=== PATIENT | female | born 1975 | race Caucasian/White ===

== ENCOUNTER 2023-09-13 09:18 | Emergency (ER) | payer OTHER ==
--- NOTE | 2023-09-13 09:53 | ED ---
Abdominal Pain HPI - General Source: patient, RN notes reviewed Mode of arrival: ambulatory Limitations: no limitations <Nito Warner - Last Filed: 09/13/23 09:52> <Jose Luis Solomon - Last Filed: 09/15/23 07:05> - General Chief Complaint: Abdominal Pain Stated Complaint: Abd Pain,Nausea Time Seen by Provider: 09/13/23 09:52 - History of Present Illness Initial Comments: 48-year-old female presents emergency Department with chief complaint of abdominal pain. Patient states she's been having symptoms of last week. Patient was seen at [facility] and states that she was diagnosed with a virus in her intestines and was placed on antibiotics. Patient states has not helped. Patient denies any fever she states she has diffuse abdominal pain she's had a prior cholecystectomy. She denies any significant changes in her bowel habits she has had slight nausea. (Nito Warner) - Related Data Home Medications Medication Instructions Recorded Confirmed Ondansetron Odt [Zofran Odt] 4 mg PO Q8HR PRN 09/13/23 09/13/23 QUEtiapine FUMARATE [SEROquel XR] 600 mg PO HS 09/13/23 09/13/23 hydrOXYzine HCL [Atarax] 25 mg PO TID PRN 09/13/23 09/13/23 Allergies Allergy/AdvReac Type Severity Reaction Status Date / Time No Known Allergies Allergy Verified 09/13/23 16:39 Review of Systems ROS Other: All systems not noted in ROS Statement are negative. <Nito Warner - Last Filed: 09/13/23 09:52> ROS Other: All systems not noted in ROS Statement are negative. <Jose Luis Solomon - Last Filed: 09/15/23 07:05> ROS Statement: Those systems with pertinent positive or pertinent negative responses have been documented in the HPI. Past Medical History Past Medical History: No Reported History History of Any Multi-Drug Resistant Organisms: None Reported Past Surgical History: Section, Cholecystectomy Past Psychological History: No Psychological Hx Reported Smoking Status: Never smoker Past Alcohol Use History: None Reported Past Drug Use History: None Reported <Nito Warner - Last Filed: 09/13/23 09:52> General Exam Limitations: no limitations <Nito Warner - Last Filed: 09/13/23 09:52> Limitations: no limitations General appearance: alert, in no apparent distress Head exam: Present: atraumatic, normocephalic Eye exam: Present: normal appearance. Absent: scleral icterus, conjunctival injection Neck exam: Present: normal inspection Respiratory exam: Present: normal lung sounds bilaterally. Absent: respiratory distress, wheezes, rales, rhonchi, stridor Cardiovascular Exam: Present: regular rate, normal rhythm, normal heart sounds. Absent: systolic murmur, diastolic murmur, rubs, gallop GI/Abdominal exam: Present: soft, tenderness. Absent: distended, guarding, rebound, rigid, mass, pulsatile mass, hernia Extremities exam: Present: normal inspection, normal capillary refill. Absent: pedal edema, calf tenderness Back exam: Present: normal inspection. Absent: CVA tenderness (R), CVA tenderness (L) Neurological exam: Present: alert Skin exam: Present: warm, dry, intact, normal color. Absent: rash <Jose Luis Solomon - Last Filed: 09/15/23 07:05> - General Exam Comments Initial Comments: Visual Physical Exam Vital signs reviewed General: Well-appearing, nontoxic, no acute distress. Head: Normocephalic, atraumatic Eyes: PERRLA, EOMI ENT: Airway patent Chest: Nonlabored breathing Skin: No visual rash, normal skin tone Neuro: Alert and oriented 3 Musculoskeletal: No gross abnormalities (Nito Warner) Course Vital Signs 09/13/23 09/13/23 09/13/23 09:49 15:23 18:06 Temperature 98 F 98 F 98.2 F Pulse Rate 77 87 74 Respiratory 18 18 18 Rate Blood Pressure 122/86 127/88 113/68 O2 Sat by Pulse 95 98 95 Oximetry 09/13/23 21:04 Temperature Pulse Rate 71 Respiratory 16 Rate Blood Pressure 125/78 O2 Sat by Pulse 96 Oximetry Medical Decision Making <Nito Warner - Last Filed: 09/13/23 09:52> - Lab Data Result diagrams: 09/13/23 09:52 09/13/23 09:52 <Jose Luis Solomon - Last Filed: 09/15/23 07:05> - Medical Decision Making I completed the quick note portion of this chart signed Nito Warner PA-C (Nito Warner) Patient is 48-year-old woman here with abdominal pain. Also having frequent vomiting. The workup does reveal a trace of pneumobilia but patient is status post cholecystectomy. I discussed the findings with patient and recommended admission but she wanted to try further symptomatic treatment and then was feel ing better and wanted to go home. Discussed that if she has recurrence of any of her symptoms or if she is not continuing to progress back to normal by the morning she needs to return for admission. Was pt. sent in by a medical professional or institution (, PA, [facility], urgent care, hospital, or half-way...) When possible be specific @ -[No] Did you speak to anyone other than the patient for history (EMS, parent, family, police, friend...)? What history was obtained from this source @ -[No] Did you review nursing and triage notes (agree or disagree)? Why? @ -[I reviewed and agree with nursing and triage notes] Were old charts reviewed (outside hosp., previous admission, EMS record, old EKG, old radiological studies, urgent care reports/EKG's, half-way records)? Report findings @ -[No old charts were reviewed] Differential Diagnosis (chest pain, altered mental status, abdominal pain women, abdominal pain men, vaginal bleeding, weakness, fever, dyspnea, syncope, headache, dizziness, GI bleed, back pain, seizure, CVA, palpatations, mental health, musculoskeletal)? @ -[Differential Abdominal Pain Women: Appendicitis, Cholecystitis, diverticulosis, ischemic bowel, pancreatitis, hepa titis, UTI, gastroenteritis, AAA, incarcerated hernia, bowel obstruction, constipation, inflammatory bowel, hepatitis, peptic ulcer disease, splenic infarction, perforated viscus, vulvitis, ovarian torsion, PID, kidney stone, placenta abruption, this is not meant to be an all-inclusive list EKG interpreted by me (3pts min.). @ -[As above] X-rays interpreted by me (1pt min.). @ -[None done] CT interpreted by me (1pt min.). @ -[I interpreted as above U/S interpreted by me (1pt. min.). @ -[None done] What testing was considered but not performed or refused? (CT, X-rays, U/S, labs)? Why? @ -[None] What meds were considered but not given or refused? Why? @ -[None] Did you discuss the management of the patient with other professionals (professionals i.e. [facility]ij[facility], PA, [facility], lab, RT, psych nurse, social media campaign manager, network cable installer, teacher, special forces warrant officer, vocational case manager)? Give summary @ -[No] Was smoking cessation discussed for >3mins.? @ -[No] Was critical care preformed (if so, how long)? @ -[No] Were there social determinants of health that impacted care today? How? (Homelessness, low income, unemployed, alcoholism, drug addiction, transportation, low edu. Level, literacy, decrease access to med. care, alf, rehab)? @ -[No] Was there de-escalation of care discussed even if they declined (Discuss DNR or withdrawal of care, Hospice)? DNR status @ -[No] What co-morbidities impacted this encounter? (DM, HTN, Smoking, COPD, CAD, Cancer, CVA, ARF, Chemo, Hep., AIDS, mental health diagnosis, sleep apnea, morbid obesity)? @ -[None] Was patient admitted / discharged? Hospital course, mention meds given and route, prescriptions, significant lab abnormalities, going to OR and other pertinent info. @ -See above Undiagnosed new problem with uncertain prognosis? @ -[No] Drug Therapy requiring intensive monitoring for toxicity (Heparin, Nitro, Insulin, Cardizem)? @ -[No] Were any procedures done? @ -[No] Diagnosis/symptom? @ -[Acute abdominal pain Acute, or Chronic, or Acute on Chronic? @ -[Acute Uncomplicated (without systemic symptoms) or Complicated (systemic symptoms)? @ -[default] Side effects of treatment? @ -[No] Exacerbation, Progression, or Severe Exacerbation? @ -[No] Poses a threat to life or bodily function? How? (Chest pain, [place], [place], pneumonia, PE, COPD, DKA, ARF, appy, cholecystitis, CVA, Diverticulitis, Homicidal, Suicidal, threat to staff... and all critical care pts) @ -[Yes, pneumobilia may be associated with infection and may become life-thr eatening, the patient to maintain low index to return, we discussed the appropriate further care and follow-up as well as return parameters (Jose Luis Solomon) - Lab Data Lab Results 09/13/23 09/13/2309/13/23 Range/Units 09:52 09:52 09:52 WBC 9.0 (3.8-10.6) k/uL RBC 4.81 (3.80-5.40) m/uL Hgb 13.7 (11.4-16.0) gm/dL Hct 41.1 (34.0-46.0) % MCV 85.5 (80.0-100.0) fL MCH 28.4 (25.0-35.0) pg MCHC 33.2 (31.0-37.0) g/dL RDW 13.6 (11.5-15.5) % Plt Count 274 (150-450) k/uL MPV 7.9 Neutrophils % 81 % Lymphocytes % 10 % Monocytes % 6 % Eosinophils % 1 % Basophils % 0 % Neutrophils # 7.3 (1.3-7.7) k/uL Lymphocytes # 0.9 L (1.0-4.8) k/uL Monocytes # 0.5 (0-1.0) k/uL Eosinophils # 0.1 (0-0.7) k/uL Basophils # 0.0 (0-0.2) k/uL Sodium 137 (137-145) mmol/L Potassium 4.3 (3.5-5.1) mmol/L Chloride 109 H (98-107) mmol/L Carbon Dioxide 15 L (22-30) mmol/L Anion Gap 13 mmol/L BUN 9 (7-17) mg/dL Creatinine 0.77 (0.52-1.04) mg/dL Est GFR (CKD-EPI)AfAm >90 (>60 ml/min/1.73 sqM) Est GFR (CKD-EPI)NonAf >90 (>60 ml/min/1.73 sqM) Glucose 108 H (74-99) mg/dL Plasma Lactic Acid Jose (0.7-2.0) mmol/L Calcium 9.2 (8.4-10.2) mg/dL Total Bilirubin 0.5 (0.2-1.3) mg/dL AST 26 (14-36) U/L ALT 26 (4-34) U/L Alkaline Phosphatase 67 (38-126) U/L Total Protein 6.1 L (6.3-8.2) g/dL Albumin 3.5 (3.5-5.0) g/dL Amylase 41 (30-110) U/L Lipase 82 (23-300) U/L Urine Color Colorless Urine Appearance Clear (Clear) Urine pH 6.0 (5.0-8.0) Ur Specific [place] 1.016 (1.001-1.035) Urine Protein Negative (Negative) Urine Glucose (UA) Negative (Negative) Urine Ketones Negative (Negative) Urine Blood Negative (Negative) Urine Nitrite Negative (Negative) Urine Bilirubin Negative (Negative) Urine Urobilinogen <2.0 (<2.0) mg/dL Ur Leukocyte Esterase Negative (Negative) Influenza Type A (PCR) (Not Detectd) Influenza Type B (PCR) (Not Detectd) RSV (PCR) (Not Detectd) SARS-CoV-2 (PCR) (Not Detectd) 09/13/23 09/13/23 Range/Units 09:52 15:14 WBC (3.8-10.6) k/uL RBC (3.80-5.40) m/uL Hgb (11.4-16.0) gm/dL Hct (34.0-46.0) % MCV (80.0-100.0) fL MCH (25.0-35.0) pg MCHC (31.0-37.0) g/dL RDW (11.5-15.5) % Plt Count (150-450) k/uL MPV Neutrophils % % Lymphocytes % % Monocytes % % Eosinophils % % Basophils % % Neutrophils # (1.3-7.7) k/uL Lymphocytes # (1.0-4.8) k/uL Monocytes # (0-1.0) k/uL Eosinophils # (0-0.7) k/uL Basophils # (0-0.2) k/uL Sodium (137-145) mmol/L Potassium (3.5-5.1) mmol/L Chloride (98-107) mmol/L Carbon Dioxide (22-30) mmol/L Anion Gap mmol/L BUN (7-17) mg/dL Creatinine (0.52-1.04) mg/dL Est GFR (CKD-EPI)AfAm (>60 ml/min/1.73 sqM) Est GFR (CKD-EPI)NonAf (>60 ml/min/1.73 sqM) Glucose (74-99) mg/dL Plasma Lactic Acid Jose 0.8 (0.7-2.0) mmol/L Calcium (8.4-10.2) mg/dL Total Bilirubin (0.2-1.3) mg/dL AST (14-36) U/L ALT (4-34) U/L Alkaline Phosphatase (38-126) U/L Total Protein (6.3-8.2) g/dL Albumin (3.5-5.0) g/dL Amylase (30-110) U/L Lipase (23-300) U/L Urine Color Urine Appearance (Clear) Urine pH (5.0-8.0) Ur Specific [place] (1.001-1.035) Urine Protein (Negative) Urine Glucose (UA) (Negative) Urine Ketones (Negative) Urine Blood (Negative) Urine Nitrite (Negative) Urine Bilirubin (Negative) Urine Urobilinogen (<2.0) mg/dL Ur Leukocyte Esterase (Negative) Influenza Type A (PCR) Not Detected (Not Detectd) Influenza Type B (PCR) Not Detected (Not Detectd) RSV (PCR) Not Detected (Not Detectd) SARS-CoV-2 (PCR) Not Detected (Not Detectd) Disposition <Nito Warner - Last Filed: 09/13/23 09:52> Is patient prescribed a controlled substance at d/c from ED?: No <Jose Luis Solomon - Last Filed: 09/15/23 07:05> Clinical Impression: Abdominal pain Disposition: HOME SELF-CARE Condition: Good Instructions (If sedation given, give patient instructions): Abdominal Pain (ED) Referrals: Marvin Reynolds Jr, [Primary Care Provider] - 1-2 days
[2023-09-13 10:23] LABS: Basophils % (A) 0 %; Eosinophils # (A) 0.1 k/uL (0-0.7); Eosinophils % (A) 1 %; HCT 41.1 % (34.0-46.0); HGB 13.7 gm/dL (11.4-16.0); Lymphocytes # (A) 0.9 k/uL (1.0-4.8); Lymphocytes % (A) 10 %; MCH 28.4 pg (25.0-35.0); MCHC 33.2 g/dL (31.0-37.0); MCV 85.5 fL (80.0-100.0); Mean Platelet Volume 7.9; Monocytes # (A) 0.5 k/uL (0-1.0); Monocytes % (A) 6 %; Neutrophils # (A) 7.3 k/uL (1.3-7.7); Neutrophils % (A) 81 %; Platelet Count 274 k/uL (150-450); RBC 4.81 m/uL (3.80-5.40); RDW 13.6 % (11.5-15.5)
[2023-09-13 10:42] LABS: ALT 26 U/L (4-34); AST 26 U/L (14-36); African American GFR (CKD) >90 (>60 ml/min/1.73 sqM); Albumin 3.5 g/dL (3.5-5.0); Alkaline Phosphatase 67 U/L (38-126); Amylase 41 U/L (30-110); Anion Gap 13 mmol/L; Blood Urea Nitrogen 9 mg/dL (7-17); Calcium 9.2 mg/dL (8.4-10.2); Carbon Dioxide 15 mmol/L (22-30); Chloride 109 mmol/L (98-107); Glucose 108 mg/dL (74-99); Lipase 82 U/L (23-300); Non-African American GFR(CKD) >90 (>60 ml/min/1.73 sqM); Potassium 4.3 mmol/L (3.5-5.1); Sodium 137 mmol/L (137-145); Total Bilirubin 0.5 mg/dL (0.2-1.3); Total Protein 6.1 g/dL (6.3-8.2)
[2023-09-13 11:18] LABS: Appearance,Urine Clear (Clear); Bilirubin,Urine Negative (Negative); Blood,Urine Negative (Negative); Color,Urine Colorless; Glucose,Urine (UA) Negative (Negative); Ketones,Urine Negative (Negative); Leukocyte Esterase,Urine Negative (Negative); Nitrite,Urine Negative (Negative); Protein,Urine Negative (Negative); Specific Gravity,Urine 1.016 (1.001-1.035); Urobilinogen,Urine <2.0 mg/dL (<2.0)
[2023-09-13] MEDS ORDERED: ONDANSETRON 4 MG/2 ML VIAL IVP STA (15:35)
[2023-09-13] MEDS ORDERED: SODIUM CHLORIDE 0.9% 1,000 ML IV ONE ×2 (15:35→18:07)
[2023-09-13] MEDS ORDERED: MORPHINE SULFATE 4 MG/ML SYRINGE IVP STA (16:56)
--- NOTE | 2023-09-13 17:05 | CT ---
EXAMINATION TYPE: CT abdomen pelvis wo con CT DLP: 900.7 mGycm, Automated exposure control for dose reduction was used. DATE OF EXAM: 09/13/2023 3:49 PM COMPARISON: CLINICAL INDICATION:Female, 48 years old with history of RUQ pain; RUQ pain TECHNIQUE: Axial CT of the abdomen and pelvis. Sagittal and coronal reformats were created on a [employer] workstation. Contrast used: mL of , (none if empty) Oral contrast used: without Oral Contrast (none if empty) FINDINGS: Exam is limited by lack of contrast. LOWER CHEST: No acute abnormality. Tiny emphysematous bleb at the left lung base posteriorly. Normal heart size with prominent pericardial fat. ABDOMEN LIVER: Tiny quantity of pneumobilia is seen at the christopher hepatis and right lobe. Liver is otherwise u nremarkable. GALLBLADDER AND BILE DUCTS: The gallbladder is surgically absent. Biliary tree does not appear pathol ogically dilated. PANCREAS: Unremarkable. SPLEEN: Unremarkable. Rounded 2.5 cm soft tissue density anterior to the spleen, likely accessory spl enic tissue. ADRENAL GLANDS: Unremarkable. KIDNEYS AND URETERS: Kidneys show no contour deforming lesion. Punctate calculus in the interpolar le ft kidney. No appreciable right renal calculi. No hydroureteronephrosis. PELVIS BLADDER: Unremarkable bladder contour. The urinary contents appear more hyperdense than expected with loss of the normally visible wall. REPRODUCTIVE: Not well evaluated by CT. Nevertheless the uterus appears enlarged and somewhat heterog eneous without clearly defined endometrial stripe. In the upper cervical region anteriorly on the lef t there is a rounded low-attenuation focus measuring up to 2 cm which may relate to nabothian cyst. O varies are grossly unremarkable. ABDOMEN & PELVIS STOMACH AND BOWEL: Stomach is nondistended. There is likely gastric diverticulum extending posteriorl y medial to the spleen. Unremarkable duodenum. Multiple fluid-filled mildly distended mid to distal small bowel loops are seen extending through the terminal ileal region. There is fatty infiltration o f the ileocecal valve. Fluid distention of the cecum up to 7.9 cm diameter. There are bubbles of gas seen which are believed to be intraluminal. There seems to be a point of transition from dilated to n ondilated colon in the distal ascending/hepatic flexure region. The colon thereafter appears decompre ssed with some scattered stool throughout. The appendix itself does not appear particularly dilated o r inflamed. PERITONEUM/RETROPERITONEUM: No evidence of pneumoperitoneum or free fluid. VASCULATURE: Mild atherosclerotic calcifications are present throughout the abdominal aorta and its b ranches. No evidence of aortic aneurysm. LYMPH NODES: No gross evidence for lymphadenopathy. SOFT TISSUE/ABDOMINAL WALL: Unremarkable for acute process. Partially seen heterogeneously dense [address] tissues. MUSCULOSKELETAL: No acute osseous abnormalities. Mild degenerative changes of the spine. There is po sterior fusion of L5-S1 with bilateral pedicle screws and posterior fixation rods. Prosthetic disc in terspace material L5-S1 with near complete interbody fusion. Partial laminectomy changes at L5-S1. Th e transpedicular screws appear to take a normal intraosseous course, the right L5 screw appears to te rminate slightly beyond the anterior cortical surface of L5, up to 4.3 mm. The left L5 screw appears to terminate near the cortical margin. The S1 screw on the left appears to terminate at or just befor e the cortical margin, while the right-sided screw appears to extend slightly beyond the cortical mar gin by about 4.3 mm. No fractures are seen. Small sclerotic density in the anterior L3 vertebral body , could represent bone island. No destructive bone lesion is seen. IMPRESSION: 1. Limited unenhanced study. 2. Fluid distention of the cecum could be related to obstructive or partially obstructive process, w ith point of transition suggested in the distal ascending colon near the hepatic flexure. Colonoscopy may be of benefit. 3. Fluid-filled, mildly dilated mid to distal small bowel loops, likely related to #2. 4. Status post cholecystectomy. Nondilated biliary tree. 5. Mild pneumobilia in the right hepatic lobe. Correlate for any recent procedure. 6. Enlarged, heterogeneous uterus and low-attenuation nodule in the left upper cervix, not well eval uated by this exam. This could represent fibroid disease and nabothian cyst. Outpatient correlation w ith pelvic ultrasound may be beneficial. 7. Somewhat hyperdense bladder contents, nonspecific. Consider correlation with urinalysis. 8. Nonacute postop spine findings as described above.
[2023-09-13] MEDS ORDERED: METOCLOPRAMIDE 5 MG/ML 2 ML VIAL IVP STA (18:07)
[2023-09-13 18:13] VITALS: TEMP 98.2
[2023-09-13 21:06] VITALS: BP 125/78; PULSE 71; RESP 16
== END 2023-09-13 21:05 | disposition home or self-care (01) ==
LOC: EC 09:18
DX: R10.84 Generalized abdominal pain (principal); Z20.822 Contact with and (suspected) exposure to COVID-19; Z90.49 Acquired absence of other specified parts of digestive tract
CPT/HCPCS: 36415; 80053; 82150; 83605; 83690; 85025; 81003; 87636; 74176; 99284; 96374; 96375 ×2; 96361 ×3; J2270; J2765; J2405

== ENCOUNTER 2023-09-29 14:17 | Observation (INO) | payer OTHER ==
--- NOTE | 2023-09-29 14:26 | ED ---
Abdominal Pain HPI <Mindy Collado - Last Filed: 09/29/23 14:24> - General Source: RN notes reviewed, old records reviewed Limitations: no limitations - History of Present Illness MD Complaint: abdominal pain -: days(s) Location: periumbilical, epigastric Radiation: epigastric Migration to: epigastric, suprapubic Severity: severe Severity scale (1-10): 10 Quality: sharp Consistency: constant Improves With: nothing Worsens With: nothing Associated Symptoms: nausea, vomiting, diarrhea Treatments Prior to Arrival: other (0) <Terence Phillip - Last Filed: 09/29/23 23:17> - General Stated Complaint: abd pain vomiting Time Seen by Provider: 09/29/23 14:24 - History of Present Illness Initial Comments: Patient is a 48-year-old female presented ER with chief complaint of nausea and vomiting. Patient states she woke up this morning and has been having abdominal pain as well. Patient denies any fevers, chills, night sweats. (Mindy Collado) This 48-year-old female to the emergency department today. Patient presents today for evaluation of dull pain with nausea vomiting. No fevers no travel show sick contacts complaints. (Terence Phillip) - Related Data Home Medications Medication Instructions Recorded Confirmed QUEtiapine FUMARATE [SEROquel XR] 300 mg PO HS 09/29/23 09/29/23 lamoTRIgine [LaMICtal Xr] 25 mg PO DAILY 09/29/23 09/29/23 Allergies Allergy/AdvReac Type Severity Reaction Status Date / Time No Known Allergies Allergy Verified 09/29/23 21:42 Review of Systems ROS Other: All systems not noted in ROS Statement are negative. <Mindy Collado - Last Filed: 09/29/23 14:24> ROS Other: All systems not noted in ROS Statement are negative. <Terence Phillip - Last Filed: 09/29/23 23:17> ROS Statement: Those systems with pertinent positive or pertinent negative responses have been documented in the HPI. Past Medical History Past Medical History: No Reported History History of Any Multi-Drug Resistant Organisms: None Reported Past Surgical History: Section, Cholecystectomy Past Psychological History: No Psychological Hx Reported Smoking Status: Never smoker Past Alcohol Use History: None Reported Past Drug Use History: None Reported <Mindy Collado - Last Filed: 09/29/23 14:24> General Exam <Mindy Collado - Last Filed: 09/29/23 14:24> General appearance: alert, in no apparent distress Head exam: Present: atraumatic, normocephalic, normal inspection Eye exam: Present: normal appearance, PERRL, EOMI. Absent: scleral icterus, conjunctival injection, periorbital swelling ENT exam: Present: normal exam, mucous membranes moist Neck exam: Present: normal inspection. Absent: tenderness, meningismus, lymphadenopathy Respiratory exam: Present: normal lung sounds bilaterally. Absent: respiratory distress, wheezes, rales, rhonchi, stridor Cardiovascular Exam: Present: regular rate, normal rhythm, normal heart sounds. Absent: systolic murmur, diastolic murmur, rubs, gallop, clicks GI/Abdominal exam: Present: soft, normal bowel sounds. Absent: distended, tenderness, guarding, rebound, rigid Extremities exam: Present: normal inspection, full ROM, normal capillary refill. Absent: tenderness, pedal edema, joint swelling, calf tenderness Back exam: Present: normal inspection Neurological exam: Present: alert, oriented X3, CN II-XII intact Psychiatric exam: Present: normal affect, normal mood Skin exam: Present: warm, dry, intact, normal color. Absent: rash <Terence Phillip - Last Filed: 09/29/23 23:17> - General Exam Comments Initial Comments: Visual Physical Exam Vital signs reviewed General: Well-appearing, nontoxic, no acute distress. Head: Normocephalic, atraumatic Eyes: PERRLA, EOMI ENT: Airway patent Chest: Nonlabored breathing Skin: No visual rash, normal skin tone Neuro: Alert and oriented 3 Musculoskeletal: No gross abnormalities (Mindy Collado) Course <Terence Phillip - Last Filed: 09/29/23 23:17> Vital Signs 09/29/23 09/29/23 09/29/23 14:35 18:34 20:00 Temperature 97.0 F L Pulse Rate 93 92 95 Respiratory 18 20 22 Rate Blood Pressure 127/84 144/82 135/84 O2 Sat by Pulse 95 92 L 95 Oximetry 09/29/23 21:00 Temperature Pulse Rate 72 Respiratory 19 Rate Blood Pressure 102/60 O2 Sat by Pulse 98 Oximetry - Reevaluation(s) Reevaluation #1: 09/29/23 17:05 Record is reviewed (Terence Phillip) Reevaluation #2: 09/29/23 23:15 Patient symptoms are unchanged, patient does not feel well it persistent abdo devante pain (Terence Phillip) Reevaluation #3: 09/29/23 23:15 Patient informed results questions answered (Terence Phillip) Reevaluation #4: 09/29/23 16:45 Was pt. sent in by a medical professional or institution ([facility]ILO Smith, [employer], urgent care, hospital, or jail...) When possible be specific @ -no Did you speak to anyone other than the patient for history (EMS, parent, family, police, friend...)? What history was obtained from this source @ -no Did you review nursing and triage notes (agree or disagree)? Why? @ -agree Are old charts reviewed (outside hosp., previous admission, EMS record, old EKG, old radiological studies, urgent care reports/EKG's, jail records)? Report findings @ -yes Differential Diagnosis (chest pain, altered mental status, abdominal pain women, abdominal pain men, vaginal bleeding, weakness, fever, dyspnea, syncope, headache, dizziness, GI bleed, back pain, seizure, CVA, palpatations, mental health, musculoskeletal)? @ -prior EKG interpreted by me (3pts min.). @ -yes X-rays interpreted by me (1pt min.). @ -yes CT interpreted by me (1pt min.). @ -no U/S interpreted by me (1pt. min.). @ -no What testing was considered but not performed or refused? (CT, X-rays, U/S, labs)? Why? @ -none What meds were considered but not given or refused? Why? @ -none Did you discuss the management of the patient with other professionals (professionals i.e. SHILO Smith, [employer], lab, RT, psych nurse, social science research assistant, printing grey cloth tender, teacher, parking officer, outpatient case manager)? Give summary @ -no Was smoking cessation discussed for >3mins.? @ -no Was critical care preformed (if so, how long)? @ -no Were there social determinants of health that impacted care today? How? (Homelessness, low income, unemployed, alcoholism, drug addiction, transportation, low edu. Level, literacy, decrease access to med. care, senior living, rehab)? @ -none Was there de-escalation of care discussed even if they declined (Discuss DNR or withdrawal of care, Hospice)? DNR status @ -no What co-morbidities impacted this encounter? (DM, HTN, Smoking, COPD, CAD, Cancer, CVA, ARF, Chemo, Hep., AIDS, mental health diagnosis, sleep apnea, morbid obesity)? @ -none Was patient admitted / discharged? Hospital course, mention meds given and route, prescriptions, significant lab abnormalities, going to OR and other pertinent info. @ - Undiagnosed new problem with uncertain prognosis? @ -no Drug Therapy requiring intensive monitoring for toxicity (Heparin, Nitro, Insulin, Cardizem)? @ -no Were any procedures done? @ -no Diagnosis/symptom? @ - Acute, or Chronic, or Acute on Chronic? @ -Acute Uncomplicated (without systemic symptoms) or Complicated (systemic symptoms)? @ -Complicated Side effects of treatment? @ -no Exacerbation, Progression, or Severe Exacerbation? @ -exacerbation Poses a threat to life or bodily function? How? (Chest pain, USA, PA, pneumonia, PE, COPD, DKA, ARF, appy, cholecystitis, CVA, Diverticulitis, Homicidal, Suicidal, threat to staff... and all critical care pts) @ -yes (Terence Phillip) Reevaluation #5: 09/29/23 23:15 Differential Abdominal Pain Women: Appendicitis, Cholecystitis, diverticulosis, ischemic bowel, pancreatitis, hepatitis, UTI, gastroenteritis, AAA, incarcerated hernia, bowel obstruction, constipation, inflammatory bowel, hepatitis, peptic ulcer disease, splenic infarction, perforated viscus, vulvitis, ovarian torsion, PID, kidney stone, placenta abruption, this is not meant to be an all-inclusive list (Terence Phillip) - Consultations Consultation #1: Dr. Pisano who agrees to admit this patient (Terence Phillip) Medical Decision Making <Mindy Collado - Last Filed: 09/29/23 14:24> - Lab Data Result diagrams: 09/29/23 15:04 09/29/23 15:04 - EKG Data -: EKG Interpreted by Me (EKG is sinus 76 VT 158 QRS 94 QTC 387) - Radiology Data Radiology results: report reviewed (CT of the abdomen and pelvis is positive for colitis), image reviewed <Terence Phillip - Last Filed: 09/29/23 23:17> - Medical Decision Making I performed the quick note portion of the exam. Electronically signed by Mindy Collado PA-C (Mindy Collado) 48 female to the emergency department with persistent nausea vomiting diarrhea and abdominal pain. Patient will be admitted for supportive care (Terence Phillip) - Lab Data Lab Results 09/29/23 09/29/23 09/29/23 Range/Units 15:04 15:04 15:04 WBC 16.6 H (3.8-10.6) k/uL RBC 5.72 H (3.80-5.40) m/uL Hgb 15.7 (11.4-16.0) gm/dL Hct 48.3 H (34.0-46.0) % MCV 84.5 (80.0-100.0) fL MCH 27.5 (25.0-35.0) pg MCHC 32.6 (31.0-37.0) g/dL RDW 13.6 (11.5-15.5) % Plt Count 371 (150-450) k/uL MPV 7.9 Neutrophils % 87 % Lymphocytes % 5 % Monocytes % 6 % Eosinophils % 1 % Basophils % 0 % Neutrophils # 14.4 H (1.3-7.7) k/uL Lymphocytes # 0.9 L (1.0-4.8) k/uL Monocytes # 1.0 (0-1.0) k/uL Eosinophils # 0.1 (0-0.7) k/uL Basophils # 0.1 (0-0.2) k/uL Sodium 137 (137-145) mmol/L Potassium 4.4 (3.5-5.1) mmol/L Chloride 105 (98-107) mmol/L Carbon Dioxide 20 L (22-30) mmol/L Anion Gap 12 mmol/L BUN 8 (7-17) mg/dL Creatinine 0.89 (0.52-1.04) mg/dL Est GFR (CKD-EPI)AfAm 89 (>60 ml/min/1.73 sqM) Est GFR (CKD-EPI)NonAf 77 (>60 ml/min/1.73 sqM) Glucose 142 H (74-99) mg/dL Plasma Lactic Acid Jose 1.2 (0.7-2.0) mmol/L Calcium 10.6 H (8.4-10.2) mg/dL Phosphorus (2.5-4.5) mg/dL Magnesium (1.6-2.3) mg/dL Total Bilirubin 0.8 (0.2-1.3) mg/dL AST 33 (14-36) U/L ALT 37 H (4-34) U/L Alkaline Phosphatase 86 (38-126) U/L Troponin I (0.000-0.034) ng/mL Total Protein 7.4 (6.3-8.2) g/dL Albumin 4.5 (3.5-5.0) g/dL Amylase 59 (30-110) U/L Lipase 188 (23-300) U/L Urine Color Urine Appearance (Clear) Urine pH (5.0-8.0) Ur Specific [place] (1.001-1.035) Urine Protein (Negative) Urine Glucose (UA) (Negative) Urine Ketones (Negative) Urine Blood (Negative) Urine Nitrite (Negative) Urine Bilirubin (Negative) Urine Urobilinogen (<2.0) mg/dL Ur Leukocyte Esterase (Negative) Urine RBC (0-5) /hpf Urine WBC (0-5) /hpf Ur Squamous Epith Cells (0-4) /hpf Urine Bacteria (None) /hpf Hyaline Casts (0-2) /lpf Urine Mucus (None) /hpf Influenza Type A (PCR) (Not Detectd) Influenza Type B (PCR) (Not Detectd) RSV (PCR) (Not Detectd) SARS-CoV-2 (PCR) (Not Detectd) 09/29/23 09/29/23 09/29/23 Range/Units 15:04 15:47 15:47 WBC (3.8-10.6) k/uL RBC (3.80-5.40) m/uL Hgb (11.4-16.0) gm/dL Hct (34.0-46.0) % MCV (80.0-100.0) fL MCH (25.0-35.0) pg MCHC (31.0-37.0) g/dL RDW (11.5-15.5) % Plt Count (150-450) k/uL MPV Neutrophils % % Lymphocytes % % Monocytes % % Eosinophils % % Basophils % % Neutrophils # (1.3-7.7) k/uL Lymphocytes # (1.0-4.8) k/uL Monocytes # (0-1.0) k/uL Eosinophils # (0-0.7) k/uL Basophils # (0-0.2) k/uL Sodium (137-145) mmol/L Potassium (3.5-5.1) mmol/L Chloride (98-107) mmol/L Carbon Dioxide (22-30) mmol/L Anion Gap mmol/L BUN (7-17) mg/dL Creatinine (0.52-1.04) mg/dL Est GFR (CKD-EPI)AfAm (>60 ml/min/1.73 sqM) Est GFR (CKD-EPI)NonAf (>60 ml/min/1.73 sqM) Glucose (74-99) mg/dL Plasma Lactic Acid Jose (0.7-2.0) mmol/L Calcium (8.4-10.2) mg/dL Phosphorus (2.5-4.5) mg/dL Magnesium (1.6-2.3) mg/dL Total Bilirubin (0.2-1.3) mg/dL AST (14-36) U/L ALT (4-34) U/L Alkaline Phosphatase (38-126) U/L Troponin I <0.012 (0.000-0.034) ng/mL Total Protein (6.3-8.2) g/dL Albumin (3.5-5.0) g/dL Amylase (30-110) U/L Lipase (23-300) U/L Urine Color Yellow Urine Appearance Cloudy H (Clear) Urine pH 5.5 (5.0-8.0) Ur Specific [place] 1.021 (1.001-1.035) Urine Protein 1+ H (Negative) Urine Glucose (UA) Negative (Negative) Urine Ketones 1+ H (Negative) Urine Blood Moderate H (Negative) Urine Nitrite Negative (Negative) Urine Bilirubin Negative (Negative) Urine Urobilinogen 2.0 (<2.0) mg/dL Ur Leukocyte Esterase Small H (Negative) Urine RBC 2 (0-5) /hpf Urine WBC 3 (0-5) /hpf Ur Squamous Epith Cells 10 H (0-4) /hpf Urine Bacteria Rare H (None) /hpf Hyaline Casts 26 H (0-2) /lpf Urine Mucus Many H (None) /hpf Influenza Type A (PCR) Not Detected (Not Detectd) Influenza Type B (PCR) Not Detected (Not Detectd) RSV (PCR) Not Detected (Not Detectd) SARS-CoV-2 (PCR) Not Detected (Not Detectd) 09/29/23 Range/Units 15:47 WBC (3.8-10.6) k/uL RBC (3.80-5.40) m/uL Hgb (11.4-16.0) gm/dL Hct (34.0-46.0) % MCV (80.0-100.0) fL MCH (25.0-35.0) pg MCHC (31.0-37.0) g/dL RDW (11.5-15.5) % Plt Count (150-450) k/uL MPV Neutrophils % % Lymphocytes % % Monocytes % % Eosinophils % % Basophils % % Neutrophils # (1.3-7.7) k/uL Lymphocytes # (1.0-4.8) k/uL Monocytes # (0-1.0) k/uL Eosinophils # (0-0.7) k/uL Basophils # (0-0.2) k/uL Sodium (137-145) mmol/L Potassium (3.5-5.1) mmol/L Chloride (98-107) mmol/L Carbon Dioxide (22-30) mmol/L Anion Gap mmol/L BUN (7-17) mg/dL Creatinine (0.52-1.04) mg/dL Est GFR (CKD-EPI)AfAm (>60 ml/min/1.73 sqM) Est GFR (CKD-EPI)NonAf (>60 ml/min/1.73 sqM) Glucose (74-99) mg/dL Plasma Lactic Acid Jose (0.7-2.0) mmol/L Calcium (8.4-10.2) mg/dL Phosphorus 2.3 L (2.5-4.5) mg/dL Magnesium 1.6 (1.6-2.3) mg/dL Total Bilirubin (0.2-1.3) mg/dL AST (14-36) U/L ALT (4-34) U/L Alkaline Phosphatase (38-126) U/L Troponin I (0.000-0.034) ng/mL Total Protein (6.3-8.2) g/dL Albumin (3.5-5.0) g/dL Amylase (30-110) U/L Lipase (23-300) U/L Urine Color Urine Appearance (Clear) Urine pH (5.0-8.0) Ur Specific [place] (1.001-1.035) Urine Protein (Negative) Urine Glucose (UA) (Negative) Urine Ketones (Negative) Urine Blood (Negative) Urine Nitrite (Negative) Urine Bilirubin (Negative) Urine Urobilinogen (<2.0) mg/dL Ur Leukocyte Esterase (Negative) Urine RBC (0-5) /hpf Urine WBC (0-5) /hpf Ur Squamous Epith Cells (0-4) /hpf Urine Bacteria (None) /hpf Hyaline Casts (0-2) /lpf Urine Mucus (None) /hpf Influenza Type A (PCR) (Not Detectd) Influenza Type B (PCR) (Not Detectd) RSV (PCR) (Not Detectd) SARS-CoV-2 (PCR) (Not Detectd) Disposition <Mindy Collado - Last Filed: 09/29/23 14:24> Is patient prescribed a controlled substance at d/c from ED?: No Time of Disposition: 22:00 <Terence Phillip - Last Filed: 09/29/23 23:17> Clinical Impression: Abdominal pain, Constipation, Gastroenteritis, Abdominal colic, Colitis Disposition: ADMITTED IP TO THIS HOSP Condition: Good
[2023-09-29 15:10] LABS: Basophils # (A) 0.1 k/uL (0-0.2); Basophils % (A) 0 %; Eosinophils # (A) 0.1 k/uL (0-0.7); Eosinophils % (A) 1 %; HCT 48.3 % (34.0-46.0); HGB 15.7 gm/dL (11.4-16.0); Lymphocytes # (A) 0.9 k/uL (1.0-4.8); Lymphocytes % (A) 5 %; MCH 27.5 pg (25.0-35.0); MCHC 32.6 g/dL (31.0-37.0); MCV 84.5 fL (80.0-100.0); Mean Platelet Volume 7.9; Monocytes % (A) 6 %; Neutrophils # (A) 14.4 k/uL (1.3-7.7); Neutrophils % (A) 87 %; Platelet Count 371 k/uL (150-450); RBC 5.72 m/uL (3.80-5.40); RDW 13.6 % (11.5-15.5); WBC 16.6 k/uL (3.8-10.6)
[2023-09-29] MEDS ORDERED: SODIUM CHLORIDE 0.9% 1,000 ML IV STA (15:34)
[2023-09-29] MEDS ORDERED: ONDANSETRON 4 MG/2 ML VIAL IVP STA (15:34)
[2023-09-29] MEDS ORDERED: MORPHINE SULFATE 4 MG/ML SYRINGE IV STA (15:34)
[2023-09-29 15:35] LABS: AST 33 U/L (14-36); African American GFR (CKD) 89 (>60 ml/min/1.73 sqM); Albumin 4.5 g/dL (3.5-5.0); Alkaline Phosphatase 86 U/L (38-126); Amylase 59 U/L (30-110); Blood Urea Nitrogen 8 mg/dL (7-17); Calcium 10.6 mg/dL (8.4-10.2); Carbon Dioxide 20 mmol/L (22-30); Glucose 142 mg/dL (74-99); Non-African American GFR(CKD) 77 (>60 ml/min/1.73 sqM); Total Bilirubin 0.8 mg/dL (0.2-1.3); Total Protein 7.4 g/dL (6.3-8.2)
[2023-09-29 15:50] LABS: ALT 37 U/L (4-34); Anion Gap 12 mmol/L; Chloride 105 mmol/L (98-107); Lipase 188 U/L (23-300); Potassium 4.4 mmol/L (3.5-5.1); Sodium 137 mmol/L (137-145)
[2023-09-29 16:18] LABS: Magnesium 1.6 mg/dL (1.6-2.3); Phosphorus 2.3 mg/dL (2.5-4.5)
--- NOTE | 2023-09-29 17:12 | XR ---
EXAMINATION TYPE: XR chest 2V DATE OF EXAM: 09/29/2023 COMPARISON: None INDICATION: Weakness and vomiting TECHNIQUE: Frontal and lateral views of the chest are obtained. FINDINGS: The heart size is normal. The pulmonary vasculature is normal. The lungs are clear. IMPRESSION: 1. No acute pulmonary process.
[2023-09-29 17:35] LABS: Appearance,Urine Cloudy (Clear); Bacteria,Urine Rare /hpf; Bilirubin,Urine Negative (Negative); Blood,Urine Moderate (Negative); Color,Urine Yellow; Glucose,Urine (UA) Negative (Negative); Hyaline Casts,Urine 26 /lpf (0-2); Ketones,Urine 1+ (Negative); Leukocyte Esterase,Urine Small (Negative); Mucus,Urine Many /hpf; Nitrite,Urine Negative (Negative); PH, Urine 5.5 (5.0-8.0); Protein,Urine 1+ (Negative); RBC,Urine 2 /hpf (0-5); Specific Gravity,Urine 1.021 (1.001-1.035); Squamous Epithelial Cell,Urine 10 /hpf (0-4); WBC,Urine 3 /hpf (0-5)
--- NOTE | 2023-09-29 19:21 | CT ---
EXAMINATION TYPE: CT abdomen pelvis w con DATE OF EXAM: 09/29/2023 COMPARISON: 09/13/2023 INDICATION: Unspecified abdominal pain. DLP: 1426 mGycm, Automated exposure control for dose reduction was used. CONTRAST: 100ml mL of Isovue 300. Study performed without Oral Contrast TECHNIQUE: Axial images were obtained from above the diaphragm to the pubic rami in the axial plane a t 5 mm thick sections. Reconstructed images are reviewed on the computer in the coronal plane. FINDINGS: Limited CT sections are obtained the lung bases. The lung bases are clear. CT ABDOMEN: Liver: Some biliary air is present centrally. Liver otherwise appears unremarkable. Spleen: Normal Pancreas: Normal Adrenal glands: The adrenal glands are normal. Gallbladder: Surgically absent Kidneys: No masses are evident. No hydronephrosis is present. No cysts are present. Delayed images obtained through the kidneys are unremarkable. Aorta: Normal Inferior vena cava: Normal. CT PELVIS: There is fluid within distal small bowel loops and within the colon. Correlate for gastroenteritis. N o dilated loops of bowel are evident. This study is without oral contrast limiting bowel evaluation. Appendix: Normal as visualized. Urinary bladder: Decompressed with limited evaluation Genitourinary structures: Uterus has multiple cysts within the cervix. Adnexa appear within normal li mits. Osseous structures: No suspicious lytic or sclerotic lesions. IMPRESSION: 1. Fluid within nondilated loops of small bowel into the colon. Correlate for gastroenteritis. 2. Nabothian cysts. 3. Biliary air within the liver
[2023-09-29] MEDS ORDERED: NALOXONE 0.4 MG/ML 1 ML VIAL IV PRN (21:58)
[2023-09-29] MEDS ORDERED: ONDANSETRON 4 MG/2 ML VIAL IVP PRN (21:58)
[2023-09-29] MEDS ORDERED: MORPHINE SULFATE 4 MG/ML SYRINGE IV PRN (21:58)
[2023-09-29] MEDS: SODIUM CHLORIDE 0.9% 1,000 ML IV SCH (22:30)
[2023-09-30 08:32] LABS: Basophils % (A) 1 %; Eosinophils # (A) 0.1 k/uL (0-0.7); Eosinophils % (A) 1 %; HCT 39.9 % (34.0-46.0); Lymphocytes % (A) 17 %; MCHC 32.6 g/dL (31.0-37.0); MCV 85.9 fL (80.0-100.0); Mean Platelet Volume 8.2; Monocytes # (A) 0.5 k/uL (0-1.0); Monocytes % (A) 8 %; Neutrophils # (A) 4.2 k/uL (1.3-7.7); Neutrophils % (A) 71 %; Platelet Count 266 k/uL (150-450); RBC 4.64 m/uL (3.80-5.40); RDW 13.7 % (11.5-15.5)
[2023-09-30 08:41] LABS: ALT 26 U/L (4-34); AST 27 U/L (14-36); African American GFR (CKD) >90 (>60 ml/min/1.73 sqM); Albumin 3.2 g/dL (3.5-5.0); Alkaline Phosphatase 49 U/L (38-126); Anion Gap 9 mmol/L; Blood Urea Nitrogen 13 mg/dL (7-17); Calcium 8.9 mg/dL (8.4-10.2); Carbon Dioxide 21 mmol/L (22-30); Chloride 108 mmol/L (98-107); Glucose 91 mg/dL (74-99); Magnesium 2.2 mg/dL (1.6-2.3); Non-African American GFR(CKD) 81 (>60 ml/min/1.73 sqM); Phosphorus 3.8 mg/dL (2.5-4.5); Sodium 138 mmol/L (137-145); Total Bilirubin 0.8 mg/dL (0.2-1.3); Total Protein 5.6 g/dL (6.3-8.2)
--- NOTE | 2023-09-30 11:35 | P.GSCN ---
History of Present Illness Consult date: 09/30/23 Reason for Consult: Abdominal pain History of present illness: Patient is a 48-year-old female who presents with a 4-5 day history of abdominal pain nausea vomiting and diarrhea. Patient states that for the past several days she has had diffuse crampy abdominal pain associated with nausea, nonbloody nonbilious emesis as well as diarrhea. She states that her last episode of diarrhea was the night prior to evaluation. Admits to flatus as well. No fevers or chills. No shortness of breath or chest pain. No melena, hematochezia, hematemesis. No prior episodes such as this. No recent travel or sick contacts. Upon presentation to [facility] emergency department a CT abdomen and pelvis was obtained which showed evidence of diffusely dilated small bowel and colon containing fluid concerning for possible gastroenteritis. No evidence of bowel obstruction was seen. No free air or free fluid was appreciated. Review of Systems Negative except for as stated above Past Medical History Past Medical History: No Reported History History of Any Multi-Drug Resistant Organisms: None Reported Past Surgical History: Section, Cholecystectomy Additional Past Surgical History / Comment(s): back surgery 2013, Past Psychological History: Anxiety, Bipolar, Depression Smoking Status: Never smoker Past Alcohol Use History: None Reported Past Drug Use History: None Reported Medications and Allergies Home Medications Medication Instructions Recorded Confirmed Type QUEtiapine FUMARATE [SEROquel XR] 300 mg PO HS 09/29/23 09/29/23 History lamoTRIgine [LaMICtal Xr] 25 mg PO DAILY 09/29/23 09/29/23 History Allergies Allergy/AdvReac Type Severity Reaction Status Date / Time No Known Allergies Allergy Verified 09/29/23 21:42 Surgical - Exam Vital Signs Temp Pulse Resp BP Pulse Ox 97.0 F L 93 18 127/84 95 09/29/23 14:35 09/29/23 14:35 09/29/23 14:35 09/29/23 14:35 09/29/23 14:35 Results - Labs 09/30/23 07:33 09/30/23 07:33 Abnormal Lab Results - Last 24 Hours (Table) 09/29/23 09/29/23 09/29/23 Range/Units 15:04 15:04 15:47 WBC 16.6 H (3.8-10.6) k/uL RBC 5.72 H (3.80-5.40) m/uL Hct 48.3 H (34.0-46.0) % Neutrophils # 14.4 H (1.3-7.7) k/uL Lymphocytes # 0.9 L (1.0-4.8) k/uL Chloride (98-107) mmol/L Carbon Dioxide 20 L (22-30) mmol/L Glucose 142 H (74-99) mg/dL Calcium 10.6 H (8.4-10.2) mg/dL Phosphorus (2.5-4.5) mg/dL ALT 37 H (4-34) U/L Total Protein (6.3-8.2) g/dL Albumin (3.5-5.0) g/dL Urine Appearance Cloudy H (Clear) Urine Protein 1+ H (Negative) Urine Ketones 1+ H (Negative) Urine Blood Moderate H (Negative) Ur Leukocyte Esterase Small H (Negative) Ur Squamous Epith Cells 10 H (0-4) /hpf Urine Bacteria Rare H (None) /hpf Hyaline Casts 26 H (0-2) /lpf Urine Mucus Many H (None) /hpf 09/29/23 09/30/23 Range/Units 15:47 07:33 WBC (3.8-10.6) k/uL RBC (3.80-5.40) m/uL Hct (34.0-46.0) % Neutrophils # (1.3-7.7) k/uL Lymphocytes # (1.0-4.8) k/uL Chloride 108 H (98-107) mmol/L Carbon Dioxide 21 L (22-30) mmol/L Glucose (74-99) mg/dL Calcium (8.4-10.2) mg/dL Phosphorus 2.3 L (2.5-4.5) mg/dL ALT (4-34) U/L Total Protein 5.6 L (6.3-8.2) g/dL Albumin 3.2 L (3.5-5.0) g/dL Urine Appearance (Clear) Urine Protein (Negative) Urine Ketones (Negative) Urine Blood (Negative) Ur Leukocyte Esterase (Negative) Ur Squamous Epith Cells (0-4) /hpf Urine Bacteria (None) /hpf Hyaline Casts (0-2) /lpf Urine Mucus (None) /hpf Diabetes panel 09/29/23 09/30/23 Range/Units 15:04 07:33 Sodium 137 138 (137-145) mmol/L Potassium 4.4 4.0 (3.5-5.1) mmol/L Chloride 105 108 H (98-107) mmol/L Carbon Dioxide 20 L 21 L (22-30) mmol/L BUN 8 13 (7-17) mg/dL Creatinine 0.89 0.86 (0.52-1.04) mg/dL Glucose 142 H 91 (74-99) mg/dL Calcium 10.6 H 8.9 (8.4-10.2) mg/dL AST 33 27 (14-36) U/L ALT 37 H 26 (4-34) U/L Alkaline Phosphatase 86 49 (38-126) U/L Total Protein 7.4 5.6 L (6.3-8.2) g/dL Albumin 4.5 3.2 L (3.5-5.0) g/dL Calcium panel 09/29/23 09/29/23 09/30/23 Range/Units 15:04 15:47 07:33 Calcium 10.6 H 8.9 (8.4-10.2) mg/dL Phosphorus 2.3 L 3.8 (2.5-4.5) mg/dL Albumin 4.5 3.2 L (3.5-5.0) g/dL Pituitary panel 09/29/23 09/30/23 Range/Units 15:04 07:33 Sodium 137 138 (137-145) mmol/L Potassium 4.4 4.0 (3.5-5.1) mmol/L Chloride 105 108 H (98-107) mmol/L Carbon Dioxide 20 L 21 L (22-30) mmol/L BUN 8 13 (7-17) mg/dL Creatinine 0.89 0.86 (0.52-1.04) mg/dL Glucose 142 H 91 (74-99) mg/dL Calcium 10.6 H 8.9 (8.4-10.2) mg/dL Adrenal panel 09/29/23 09/30/23 Range/Units 15:04 07:33 Sodium 137 138 (137-145) mmol/L Potassium 4.4 4.0 (3.5-5.1) mmol/L Chloride 105 108 H (98-107) mmol/L Carbon Dioxide 20 L 21 L (22-30) mmol/L BUN 8 13 (7-17) mg/dL Creatinine 0.89 0.86 (0.52-1.04) mg/dL Glucose 142 H 91 (74-99) mg/dL Calcium 10.6 H 8.9 (8.4-10.2) mg/dL Total Bilirubin 0.8 0.8 (0.2-1.3) mg/dL AST 33 27 (14-36) U/L ALT 37 H 26 (4-34) U/L Alkaline Phosphatase 86 49 (38-126) U/L Total Protein 7.4 5.6 L (6.3-8.2) g/dL Albumin 4.5 3.2 L (3.5-5.0) g/dL Assessment and Plan Assessment: Patient is a 48 year old female who presents with abdominal pain N/V and diarrhea with CT evidence concerning for gastroenteritis Plan: -NPO -IVF hydration -Recommend IV abx: rocephin/flagyl -PRN pain and nausea control -DVT/GI Ppx -No acute surgical intervention Jevon Hdz MD General Surgery
[2023-09-30] MEDS: SODIUM CHLORIDE 0.9% 1,000 ML IV SCH (12:40)
--- NOTE | 2023-09-30 12:52 | P.HPIM ---
History of Present Illness H&P Date: 09/30/23 Chief Complaint: Abdominal pain Daphne is a 48-year-old female. She reports mid epigastric abdominal pain and right upper quadrant abdominal pain that lead to nausea and vomiting. She reports this is been recurrent and intermittent over the past month. She had been here in the emergency room on September 13 with the same symptoms. Currently her symptoms are improved with morphine. He denied any chest pains pressures shortness of breath during these episodes. She does have asthma and uses an inhaler along with Lamictal and Seroquel for her bipolar depression. She is treated [facility] for this. Currently her pain is improved but still present. No recent nausea or vomiting. She is tolerating clear liquids at this time. A white count found on admission is resolved. CT shows absent gallbladder, some biliary air present centrally in the liver. Otherwise unremarkable. Fluid with nondilated loops of small bowel into the colon and nabothian cysts. Her ex- is at bedside. Review of Systems All systems: negative Past Medical History Past Medical History: No Reported History Additional Past Medical History / Comment(s): Asthma History of Any Multi-Drug Resistant Organisms: None Reported Past Surgical History: Section, Cholecystectomy Additional Past Surgical History / Comment(s): back surgery 2013, Past Psychological History: Anxiety, Bipolar, Depression Smoking Status: Never smoker Past Alcohol Use History: None Reported Past Drug Use History: None Reported Medications and Allergies Home Medications Medication Instructions Recorded Confirmed Type QUEtiapine FUMARATE [SEROquel XR] 300 mg PO HS 09/29/23 09/29/23 History lamoTRIgine [LaMICtal Xr] 25 mg PO DAILY 09/29/23 09/29/23 History Allergies Allergy/AdvReac Type Severity Reaction Status Date / Time No Known Allergies Allergy Verified 09/29/23 21:42 Physical Exam Vitals: Vital Signs Temp Pulse Resp BP Pulse Ox 09/30/23 09:27 78 18 116/62 98 09/30/23 03:00 80 18 115/65 97 09/29/23 21:00 72 19 102/60 98 09/29/23 20:00 95 22 135/84 95 09/29/23 18:34 92 20 144/82 92 L 09/29/23 14:35 97.0 F L 93 18 127/84 95 GENERAL: Morbidly obese female. She is in no distress at rest. HEAD: Atraumatic, normocephalic. EYES: Pupils equal round and reactive to light, extraocular movements intact, sclera anicteric, conjunctiva are normal. ENT:nares patent, oropharynx clear without exudates. Moist mucous membranes. NECK: Normal range of motion, supple without lymphadenopathy or JVD, no thyromegaly LUNGS: Breath sounds clear to auscultation bilaterally and equal. No wheezes rales or rhonchi. HEART: Regular rate and rhythm without murmurs, rubs or gallops.S1S2 Normal ABDOMEN: Soft, bowel sounds, there is midepigastric and right upper quadrant pain to palpation. EXTREMITIES: Normal range of motion, no pitting or edema. No clubbing or cyanosis. NEUROLOGICAL: Cranial nerves II through XII grossly intact. Normal speech, normal gait. PSYCH: Normal mood, normal affect. SKIN: Warm, Dry, normal turgor, no rashes or lesions noted. Results CBC & Chem 7: 09/30/23 07:33 09/30/23 07:33 Labs: Abnormal Lab Results - Last 24 Hours (Table) 09/29/23 09/29/23 09/29/23 Range/Units 15:04 15:04 15:47 WBC 16.6 H (3.8-10.6) k/uL RBC 5.72 H (3.80-5.40) m/uL Hct 48.3 H (34.0-46.0) % Neutrophils # 14.4 H (1.3-7.7) k/uL Lymphocytes # 0.9 L (1.0-4.8) k/uL Chloride (98-107) mmol/L Carbon Dioxide 20 L (22-30) mmol/L Glucose 142 H (74-99) mg/dL Calcium 10.6 H (8.4-10.2) mg/dL Phosphorus (2.5-4.5) mg/dL ALT 37 H (4-34) U/L Total Protein (6.3-8.2) g/dL Albumin (3.5-5.0) g/dL Urine Appearance Cloudy H (Clear) Urine Protein 1+ H (Negative) Urine Ketones 1+ H (Negative) Urine Blood Moderate H (Negative) Ur Leukocyte Esterase Small H (Negative) Ur Squamous Epith Cells 10 H (0-4) /hpf Urine Bacteria Rare H (None) /hpf Hyaline Casts 26 H (0-2) /lpf Urine Mucus Many H (None) /hpf 09/29/23 09/30/23 Range/Units 15:47 07:33 WBC (3.8-10.6) k/uL RBC (3.80-5.40) m/uL Hct (34.0-46.0) % Neutrophils # (1.3-7.7) k/uL Lymphocytes # (1.0-4.8) k/uL Chloride 108 H (98-107) mmol/L Carbon Dioxide 21 L (22-30) mmol/L Glucose (74-99) mg/dL Calcium (8.4-10.2) mg/dL Phosphorus 2.3 L (2.5-4.5) mg/dL ALT (4-34) U/L Total Protein 5.6 L (6.3-8.2) g/dL Albumin 3.2 L (3.5-5.0) g/dL Urine Appearance (Clear) Urine Protein (Negative) Urine Ketones (Negative) Urine Blood (Negative) Ur Leukocyte Esterase (Negative) Ur Squamous Epith Cells (0-4) /hpf Urine Bacteria (None) /hpf Hyaline Casts (0-2) /lpf Urine Mucus (None) /hpf Chest x-ray: report reviewed CT scan - abdomen: report reviewed Thrombosis Risk Factor Assmnt - DVT/VTE Prophylaxis DVT/VTE Prophylaxis: Low risk, early ambulation encouraged - Choose All That Apply Any of the Below Risk Factors Present?: Yes Each Factor Represents 1 point: Age 41-60 years, Obesity (BMI >25) Thrombosis Risk Factor Assessment Total Risk Factor Score: 2 Thrombosis Risk Factor Assessment Level: Low Risk Assessment and Plan (1) Bipolar 2 disorder Current Visit: Yes Status: Acute Code(s): F31.81 - BIPOLAR II DISORDER SNOMED Code(s): 27453146 (2) Asthma, mild intermittent Current Visit: Yes Status: Acute Code(s): J45.20 - MILD INTERMITTENT ASTHMA, UNCOMPLICATED SNOMED Code(s): 979607049 (3) Morbid obesity Current Visit: Yes Status: Acute Code(s): E66.01 - MORBID (SEVERE) OBESITY DUE TO EXCESS CALORIES SNOMED Code(s): 963526310 (4) Abdominal pain Current Visit: Yes Status: Acute Code(s): R10.9 - UNSPECIFIED ABDOMINAL PAIN SNOMED Code(s): 78001357 (5) Gastroenteritis Current Visit: Yes Status: Acute Code(s): K52.9 - NONINFECTIVE GASTROENTERITIS AND COLITIS, UNSPECIFIED SNOMED Code(s): 12314946 Plan: We'll renew the patient's home medications. Order updrafts as needed. Surgery recommended Rocephin and Flagyl given start this as well. The patient on pantoprazole and Carafate. Repeat labs in a.m., reevaluate patient next 24 hours.
[2023-09-30] MEDS ORDERED: ALBUTEROL NEBULIZED 2.5 MG/3 ML INHALATION PRN (12:53)
[2023-09-30] MEDS: lamoTRIgine 25 MG TAB PO SCH ×2 (13:23→21:45)
[2023-09-30] MEDS: PANTOPRAZOLE 40 MG/10 ML VIAL IVP SCH (13:23)
[2023-09-30] MEDS: QUEtiapine 100 MG TAB PO SCH ×2 (13:25→21:47)
[2023-09-30] MEDS: SUCRALFATE 1 GM TAB PO SCH ×2 (16:38→21:45)
[2023-10-01] MEDS: SODIUM CHLORIDE 0.9% 1,000 ML IV SCH ×2 (05:02→11:43)
[2023-10-01] MEDS: SUCRALFATE 1 GM TAB PO SCH ×2 (06:06→11:43)
[2023-10-01 08:34] VITALS: BP 100/64; PULSE 74; RESP 18; TEMP 98.2
[2023-10-01] MEDS: lamoTRIgine 25 MG TAB PO SCH (09:54)
[2023-10-01] MEDS: PANTOPRAZOLE 40 MG/10 ML VIAL IVP SCH (09:55)
[2023-10-01 10:05] LABS: Basophils # (A) 0.03 X 10*3/uL (0.00-0.10); Basophils % (A) 0.7 %; Eosinophils # (A) 0.09 X 10*3/uL (0.04-0.35); Eosinophils % (A) 2.2 %; HGB 11.9 g/dL (12.0-15.0); Lymphocytes # (A) 0.93 X 10*3/uL (0.90-5.00); Lymphocytes % (A) 22.7 %; MCH 26.6 pg (27.0-32.0); MCHC 31.3 g/dL (32.0-37.0); MCV 84.8 FL (80.0-97.0); Mean Platelet Volume 10.3 FL (9.5-12.2); Monocytes # (A) 0.47 X 10*3/uL (0.20-1.00); Monocytes % (A) 11.5 %; NRBC Per 100 WBC 0 X 10*3/uL (0.00-0.01); Neutrophils # (A) 2.57 X 10*3/uL (1.80-7.70); Neutrophils % (A) 62.7 %; Platelet Count 252 X 10*3/uL (140-440); RBC 4.48 X 10*6/uL (4.10-5.20); RDW 13.5 % (11.5-14.5)
[2023-10-01] MEDS: QUEtiapine 100 MG TAB PO SCH (11:24)
--- NOTE | 2023-10-01 12:01 | P.PN ---
Subjective 09/30/23 Daphne is a 48-year-old female. She reports mid epigastric abdominal pain and right upper quadrant abdominal pain that lead to nausea and vomiting. She reports this is been recurrent and intermittent over the past month. She had been here in the emergency room on September 13 with the same symptoms. Currently her symptoms are improved with morphine. He denied any chest pains pressures shortness of breath during these episodes. She does have asthma and uses an inhaler along with Lamictal and Seroquel for her bipolar depression. She is treated [facility] for this. Currently her pain is improved but still present. No recent nausea or vomiting. She is tolerating clear liquids at this time. A white count found on admission is resolved. CT shows absent gallbladder, some biliary air present centrally in the liver. Otherwise unremarkable. Fluid with nondilated loops of small bowel into the colon and nabothian cysts. Her ex- is at bedside. 10/01/2023: Patient is feeling improved. She is currently on Carafate and pantoprazole from epigastric Jose pain thought to be possibly gastritis. She was seen by surgery. She remains on a clear liquid diet. Signs are stable she is afebrile. Laboratory studies are essentially normal with exception of slight drop in hemoglobin. Magnesium stable lipase is normal. Objective - Vital Signs Vital signs: Vital Signs Temp 98.2 F 10/01/23 07:00 Pulse 74 10/01/23 07:00 Resp 18 10/01/23 07:00 BP 100/64 10/01/23 07:00 Pulse Ox 93 L 10/01/23 07:00 FiO2 Intake & Output 09/30/23 10/01/23 10/01/23 18:59 06:59 18:59 Intake Total 90 Balance 90 Weight 99.79 kg Intake: Oral 90 Other: Voiding Method Toilet # Voids 0 2 - Exam GENERAL: Morbidly obese female. She is in no distress at rest. NECK: Normal range of motion, supple without lymphadenopathy or JVD, no thyromegaly LUNGS: Breath sounds clear to auscultation bilaterally and equal. No wheezes rales or rhonchi. HEART: Regular rate and rhythm without murmurs, rubs or gallops.S1S2 Normal ABDOMEN: Soft, bowel sounds, there is now minimal midepigastric pain only EXTREMITIES: Normal range of motion, no pitting or edema. No clubbing or cyanosis. NEUROLOGICAL: Cranial nerves II through XII grossly intact. Normal speech, normal gait. PSYCH: Normal mood, normal affect. SKIN: Warm, Dry, normal turgor, no rashes or lesions noted. - Labs CBC & Chem 7: 10/01/23 05:50 09/30/23 07:33 Labs: Abnormal Lab Results - Last 24 Hours (Table) 10/01/23 Range/Units 05:50 WBC 4.10 L (4.50-10.00) X 10*3/uL Hgb 11.9 L (12.0-15.0) g/dL MCH 26.6 L (27.0-32.0) pg MCHC 31.3 L (32.0-37.0) g/dL Assessment and Plan (1) Gastroenteritis Current Visit: Yes Status: Acute Code(s): K52.9 - NONINFECTIVE GASTROENTERITIS AND COLITIS, UNSPECIFIED SNOMED Code(s): 99524866 (2) Abdominal pain Current Visit: Yes Status: Acute Code(s): R10.9 - UNSPECIFIED ABDOMINAL PAIN SNOMED Code(s): 50659034 (3) Bipolar 2 disorder Current Visit: Yes Status: Acute Code(s): F31.81 - BIPOLAR II DISORDER S NOMED Code(s): 49172236 (4) Asthma, mild intermittent Current Visit: Yes Status: Acute Code(s): J45.20 - MILD INTERMITTENT ASTHMA, UNCOMPLICATED SNOMED Code(s): 025339870 (5) Morbid obesity Current Visit: Yes Status: Acute Code(s): E66.01 - MORBID (SEVERE) OBESITY DUE TO EXCESS CALORIES SNOMED Code(s): 274076753 Plan: Dixon her diet to regular Possible discharge this afternoon. Continues to improve. Most likely will need an EGD and colonoscopy outpatient.
--- NOTE | 2023-10-01 12:05 | P.DS ---
Providers Date of admission: 09/29/23 22:00 Expected date of discharge: 10/01/23 Attending physician: Eloy Pisano Consults: 09/29/23 21:58 Consult Physician Routine Consulting Provider: Addis Tubbs Consult Reason/Comments: colitis Do you want consulting provider notified?: Yes Primary care physician: Marvin Reynolds - Discharge Diagnosis(es) (1) Gastroenteritis Current Visit: Yes Status: Acute (2) Abdominal pain Current Visit: Yes Status: Acute (3) Bipolar 2 disorder Current Visit: Yes Status: Acute (4) Asthma, mild intermittent Current Visit: Yes Status: Acute (5) Morbid obesity Current Visit: Yes Status: Acute Hospital Course: 09/30/23 Daphne is a 48-year-old female. She reports mid epigastric abdominal pain and right upper quadrant abdominal pain that lead to nausea and vomiting. She reports this is been recurrent and intermittent over the past month. She had been here in the emergency room on September 13 with the same symptoms. Currently her symptoms are improved with morphine. He denied any chest pains pressures shortness of breath during these episodes. She does have asthma and uses an inhaler along with Lamictal and Seroquel for her bipolar depression. She is treated [facility] for this. Currently her pain is improved but still present. No recent nausea or vomiting. She is tolerating clear liquids at this time. A white count found on admission is resolved. CT shows absent gallbladder, some biliary air present centrally in the liver. Otherwise unremarkable. Fluid with nondilated loops of small bowel into the colon and nabothian cysts. Her ex- is at bedside. 10/01/2023: Patient is feeling improved. She is currently on Carafate and pantoprazole from epigastric Jose pain thought to be possibly gastritis. She was seen by surgery. She remains on a clear liquid diet. Signs are stable she is afebrile. Laboratory studies are essentially normal with exception of slight drop in hemoglobin. Magnesium stable lipase is normal. Addendum: Patient tolerated her regular diet and was be discharged home Patient Condition at Discharge: Good Plan - Discharge Summary Discharge Rx Participant: No New Discharge Prescriptions: New Sucralfate [Carafate] 1 gm PO ACHS #120 tab Pantoprazole Sodium 40 mg PO DAILY #30 tab Continue QUEtiapine FUMARATE [SEROquel XR] 300 mg PO HS lamoTRIgine [LaMICtal Xr] 25 mg PO DAILY Discharge Medication List QUEtiapine FUMARATE [SEROquel XR] 300 mg PO HS 09/29/23 [History] lamoTRIgine [LaMICtal Xr] 25 mg PO DAILY 09/29/23 [History] Pantoprazole Sodium 40 mg PO DAILY #30 tab 10/01/23 [Rx] Sucralfate [Carafate] 1 gm PO ACHS #120 tab 10/01/23 [Rx] Follow up Appointment(s)/Referral(s): Marvin Reynolds Jr, [Primary Care Provider] - 1-2 days Discharge Disposition: HOME SELF-CARE Plan of Treatment: EGD and colonoscopy to be scheduled outpatient
--- NOTE | 2023-10-01 14:28 | P.PN ---
Subjective Progress Note Date: 10/01/23 She feels better. Diarrhea resolved. Recommend increased fluids and chicken soup/broth for home. All questions addressed. Objective - Vital Signs Vital signs: Vital Signs Temp 98.2 F 10/01/23 07:00 Pulse 74 10/01/23 07:00 Resp 18 10/01/23 07:00 BP 100/64 10/01/23 07:00 Pulse Ox 93 L 10/01/23 07:00 FiO2 Intake & Output 09/30/23 10/01/23 10/01/23 18:59 06:59 18:59 Intake Total 90 120 Balance 90 120 Weight 99.79 kg Intake: Oral 90 120 Other: Voiding Method Toilet # Voids 0 2 - Labs CBC & Chem 7: 10/01/23 05:50 09/30/23 07:33 Labs: Abnormal Lab Results - Last 24 Hours (Table) 10/01/23 Range/Units 05:50 WBC 4.10 L (4.50-10.00) X 10*3/uL Hgb 11.9 L (12.0-15.0) g/dL MCH 26.6 L (27.0-32.0) pg MCHC 31.3 L (32.0-37.0) g/dL
== END 2023-10-01 15:35 | disposition home or self-care (01) ==
LOC: EC 14:17 → 6NMEDSUR 22:00
PROVIDERS: ADMIT Family Medicine; ATTEND Family Medicine
DX: K52.9 Noninfective gastroenteritis and colitis, unspecified (principal); J45.20 Mild intermittent asthma, uncomplicated; K59.00 Constipation, unspecified; N88.8 Other specified noninflammatory disorders of cervix uteri; F31.81 Bipolar II disorder; F41.9 Anxiety disorder, unspecified; E66.01 Morbid (severe) obesity due to excess calories; Z68.34 Body mass index [BMI] 34.0-34.9, adult; Z11.52 Encounter for screening for COVID-19; Z11.59 Encounter for screening for other viral diseases; Z79.899 Other long term (current) drug therapy; Z90.49 Acquired absence of other specified parts of digestive tract; Z98.891 History of uterine scar from previous surgery
CPT/HCPCS: 96376; 96361 ×3; 96374; 96375 ×2; 99285; 36415; 93005; 80053 ×2; 82150; 83605; 83690 ×2; 83735 ×3; 84100 ×2; 84484; 85025 ×3; 81001; 87636; 71046; 74177; G0378 ×3; J2270; J2405; C9113 ×2; Q9967